=== PATIENT | male | born 1940 | race Caucasian/White ===

== ENCOUNTER → 2016-08-21 | Outpatient (CLI) | payer MEDICARE, BC ==
[~2016-08-21] MED LIST: ADVAIR; ADVAIR 250/501 EA INH; ALLOPURINOL300 MG PO; AMOXIL500 MG PO; ASPIRIN81 M1 PO; AUGMENTIN 500 M1 TAB PO; AUGMENTIN 875 M1 TA1 PO; AUGMENTIN 875875 MG PO; BAYER ASPIRIN325 MG PO; CRESTOR40 MG PO; Clopidogrel75 MG PO; FISH OIL 10001000 MG PO; FOLIC ACID; FOLIC ACID800 MCG PO; HYCODAN 1.5 MG480 ML; ISOSORBIDE DINIT5 MG PO; ISOSORBIDE MONO60 MG PO; ISOSORBIDE30 MG PO; LOPRESSOR25 MG PO; METOPROLOL SR50 MG PO; METOPROLOL100 MG PO; MULTIPLE VITAMI1 CAP PO; MULTIVITAMIN; PANTOPRAZOLE40 M1 PO; PANTOPRAZOLE40 MG PO; PLAVIX75 MG PO; TUSSIN100 MG/5 M PO; Zofran4 MG PO
== END | disposition home or self-care (01) ==
LOC: US 12:43
DX: I25.10 Atherosclerotic heart disease of native coronary artery without angina pectoris (principal); I10 Essential (primary) hypertension; I63.132 Cerebral infarction due to embolism of left carotid artery; I73.9 Peripheral vascular disease, unspecified; Z98.890 Other specified postprocedural states

== ENCOUNTER 2017-07-04 03:28 | Inpatient (IN) | payer MEDICARE, BC ==
[~2017-07-04] VITALS: Ht 175.2 cm; Wt 73.3 kg
[2017-07-04] VITALS (11 sets, daily range): BP systolic 120–211; BP diastolic 69–96
[2017-07-04 03:51] LABS: BASO # 0.1 10*3/uL (0.0-0.1); BASO % 1.3 % (0.0-1.0); EOS # 0.4 10*3/uL (0.0-0.4); EOS % 4.8 % (1.0-4.0); HEMATOCRIT 40.7 % (42.0-52.0); HEMOGLOBIN 12.5 g/dl (14.0-18.0); LYMPH # 2.7 10*3/uL (1.3-4.4); LYMPH % 31.3 % (27.0-41.0); MEAN CELL VOLUME 84.1 fl (80.0-94.0); MEAN CORPUSCULAR HGB 25.8 pg (27.0-31.0); MEAN CORPUSCULAR HGB CONC 30.7 g/dl (33.0-37.0); MEAN PLATELET VOLUME 10.2 fl (9.6-12.3); MONO # 0.8 10*3/uL (0.1-1.0); MONO % 9.7 % (3.0-9.0); NEUT # 4.5 10*3/uL (2.3-7.9); NEUT % 52.1 % (47.0-73.0); PLATELET COUNT AUTOMATED 227 10*3/uL (130-400); RED BLOOD COUNT 4.84 10*6/uL (4.50-5.90); RED CELL DISTRI WIDTH 15.1 % (0-14.5); WHITE BLOOD COUNT 8.6 10*3/uL (4.8-10.8)
[2017-07-04 04:01] LABS: ACT PARTIAL THROMBO TIME 24.7 SECONDS (20.8-31.5)
[2017-07-04 04:10] LABS: ALBUMIN 3.5 gm/dl (3.1-4.5); ALKALINE PHOSPHATASE 71 U/L (45-117); BUN 14 mg/dl (7-24); CHLORIDE 103 mmol/L (98-107); CREATININE 1.13 mg/dL (0.70-1.30); POTASSIUM 4.2 mmol/L (3.5-5.1); SGOT/AST 21 IU/L (3-35); SGPT/ALT 18 U/L (12-78); SODIUM 138 mmol/L (136-145); TOTAL PROTEIN 7.9 gm/dL (6.4-8.2)
[2017-07-04 04:12] LABS: TROPONIN I 0.292 ng/ml (<0.045)
--- NOTE | 2017-07-04 06:03 | NUR ---
CALLED TO GET REPORT FROM FRITZ AT 0600 REPORT RECIEVED AT THIS TIME.
--- NOTE | 2017-07-04 06:10 | NUR ---
A 77, admitted to ICCU, under the services of RAFI Gomez DO with a diagnosis of CHEST PAIN. Chief complaint is CHEST PAIN. Patient arrived via ambulatory from ER. Monitor applied. Initial assessment completed. Vital signs taken and recorded. RAFI GOMEZ DO notified of admission to the unit. Orders received. See assessment for past medical history, medications and allergies. Patient and/or family oriented to unit. [facility] ICCU visitation policy reviewed. Clothing/patient valuable form completed. YOVANA BEGUM
[2017-07-04 07:43] LABS: PHOSPHOROUS 2.4 mg/dL (2.5-4.9)
[2017-07-04 07:46] LABS: VITAMIN D, 25-HYDROXY 16.9 ng/mL (30-100)
[2017-07-04 07:48] LABS: THYROID STIM HORMONE (HS) 1.85 uIU/ml (0.358-4.75)
--- NOTE | 2017-07-04 09:00 | NUR ---
Awake and alert. and dtr called in to check on pt. Dr. Pak in to evaulate. Dr. Escobedo was paged through ans. service for notification of consult. Heparin gtt up to infuse.
[2017-07-04 09:24] LABS: BASO # 0.1 10*3/uL (0.0-0.1); BASO % 0.7 % (0.0-1.0); EOS # 0.3 10*3/uL (0.0-0.4); EOS % 3.7 % (1.0-4.0); HEMATOCRIT 39.7 % (42.0-52.0); HEMOGLOBIN 12.2 g/dl (14.0-18.0); LYMPH % 23.8 % (27.0-41.0); MEAN CELL VOLUME 83.9 fl (80.0-94.0); MEAN CORPUSCULAR HGB 25.8 pg (27.0-31.0); MEAN CORPUSCULAR HGB CONC 30.7 g/dl (33.0-37.0); MEAN PLATELET VOLUME 10.1 fl (9.6-12.3); MONO # 0.8 10*3/uL (0.1-1.0); MONO % 9.2 % (3.0-9.0); NEUT # 5.1 10*3/uL (2.3-7.9); PLATELET COUNT AUTOMATED 204 10*3/uL (130-400); RED BLOOD COUNT 4.73 10*6/uL (4.50-5.90); WHITE BLOOD COUNT 8.2 10*3/uL (4.8-10.8)
[2017-07-04 09:44] LABS: BUN 13 mg/dl (7-24); CHLORIDE 106 mmol/L (98-107); CREATININE 1.03 mg/dL (0.70-1.30); POTASSIUM 4.4 mmol/L (3.5-5.1); SODIUM 137 mmol/L (136-145)
--- NOTE | 2017-07-04 12:34 | NUR ---
Family in request lock box contents. recieved from retail warehouse supervisor.
--- NOTE | 2017-07-04 18:05 | NUR ---
Dr. galvan in discussed transfer to [facility] for heart cath in [facility] alerted and stated would berry picker machine operator at 0615.
[2017-07-05] VITALS: BP 140/73
[2017-07-05 04:00] VITALS: BP 143/74
--- NOTE | 2017-07-05 06:15 | NUR ---
FISHTAIL HERE TO TAKE PATIENT TO [facility] MAIN. PATIENT GOING WITH HEPARIN DRIP.
--- NOTE | 2017-07-05 06:28 | NUR ---
PATIENT REPORT GIVEN TO SHERI IN [facility] AT [facility]. NURSE ASKED IF PATIENT COULD PLEASE BE GIVEN LOPRESSOR ASA AND PLAVIX BEFORE HE LEFT. PATIENT WAS GIVEN HIS PILLS. PATIENT THEN LEFT BY [facility] TO BE TAKEN TO [facility] MAIN PATIENT LEFT IN STABLE CONDITION HEPARIN DRIP STILL INFUSING. PATIENT PACKET SENT WITH PATIENT ON AMBULANCE.
== END 2017-07-05 06:36 | disposition short-term general hospital (02) | DRG 281 ==
LOC: ED 03:28 → EDHOLD 05:46 → ICCU 05:46
PROVIDERS: Emergency Medicine Emergency Medical Services; Internal Medicine; ADMIT Internal Medicine
DX: I21.4 Non-ST elevation (NSTEMI) myocardial infarction (principal); I16.1 Hypertensive emergency; D64.9 Anemia, unspecified; E83.41 Hypermagnesemia; Z95.1 Presence of aortocoronary bypass graft; Z66 Do not resuscitate; J43.9 Emphysema, unspecified; I25.10 Atherosclerotic heart disease of native coronary artery without angina pectoris; I10 Essential (primary) hypertension; M1A.9XX0 Chronic gout, unspecified, without tophus (tophi); D72.821 Monocytosis (symptomatic); K21.9 Gastro-esophageal reflux disease without esophagitis; R73.9 Hyperglycemia, unspecified; Z51.5 Encounter for palliative care; Z88.1 Allergy status to other antibiotic agents; Z88.8 Allergy status to other drugs, medicaments and biological substances; Z86.73 Personal history of transient ischemic attack (TIA), and cerebral infarction without residual deficits; Z82.49 Family history of ischemic heart disease and other diseases of the circulatory system; Z79.82 Long term (current) use of aspirin; Z79.899 Other long term (current) drug therapy; E78.00 Pure hypercholesterolemia, unspecified

== ENCOUNTER 2017-07-17 11:58 | Emergency (ER) | payer MEDICARE, BC ==
[~2017-07-17] VITALS: Ht 170.1 cm; Wt 66.7 kg
[2017-07-17 12:56] LABS: HEMATOCRIT 32.9 % (42.0-52.0); MEAN CORPUSCULAR HGB 26.5 pg (27.0-31.0); MEAN CORPUSCULAR HGB CONC 30.4 g/dl (33.0-37.0); MEAN PLATELET VOLUME 9.9 fl (9.6-12.3); PLATELET COUNT AUTOMATED 423 10*3/uL (130-400); RED BLOOD COUNT 3.78 10*6/uL (4.50-5.90); RED CELL DISTRI WIDTH 18.8 % (0-14.5); WHITE BLOOD COUNT 16.1 10*3/uL (4.8-10.8)
[2017-07-17 13:01] LABS: BILIRUBIN NEGATIVE (NEGATIVE); BLOOD 3+ (NEGATIVE); CLARITY SL CLOUDY (CLEAR); COLOR YELLOW (YELLOW); GLUCOSE TRACE (NEGATIVE); KETONE NEGATIVE (NEGATIVE); LEUKO ESTERASE NEGATIVE (NEGATIVE); NITRITE NEGATIVE (NEGATIVE)
[2017-07-17 13:11] LABS: ALBUMIN 2.7 gm/dl (3.1-4.5); ALKALINE PHOSPHATASE 80 U/L (45-117); BUN 11 mg/dl (7-24); CHLORIDE 102 mmol/L (98-107); CREATININE 0.98 mg/dL (0.70-1.30); POTASSIUM 3.9 mmol/L (3.5-5.1); SGOT/AST 40 IU/L (3-35); SGPT/ALT 45 U/L (12-78); SODIUM 135 mmol/L (136-145); TOTAL PROTEIN 6.8 gm/dL (6.4-8.2)
[2017-07-17 13:11] LABS: BACTERIA TRACE; RBC 31-40 rbc/hpf (0-2); WBC 0-2 wbc/hpf (0-5)
[2017-07-17 13:14] LABS: PLATELET SUFFICIENCY HIGH (NORMAL); POLYCHROMASIA SLIGHT; SCHISTOCYTES FEW; TOTAL CELLS COUNTED 100 #CELLS
[2017-07-17 15:34] VITALS: BP 120/66
== END 2017-07-17 16:14 | disposition home or self-care (01) ==
LOC: ED 11:58
PROVIDERS: Emergency Medicine
DX: M79.662 Pain in left lower leg (principal); E78.5 Hyperlipidemia, unspecified; K21.9 Gastro-esophageal reflux disease without esophagitis; M10.9 Gout, unspecified; J44.9 Chronic obstructive pulmonary disease, unspecified; I10 Essential (primary) hypertension; I25.10 Atherosclerotic heart disease of native coronary artery without angina pectoris; Z88.1 Allergy status to other antibiotic agents; Z88.8 Allergy status to other drugs, medicaments and biological substances

== ENCOUNTER 2018-09-12 22:30 | Inpatient (IN) | payer MEDICARE, BC ==
[~2018-09-12] VITALS: Ht 170.1 cm; Wt 67.3 kg
--- NOTE | ~2018-09-12 | CON ---
[place], [place] REPORT OF CONSULTATION NAME: ZEUS ROSENBAUM [facility] #: [id number] UNIT #: [id number] ROOM: 531 DOCTOR: ANTONIO PINO MD BIRTHDATE: [birth year] DOS: 09/13/2018 GASTROENDOSCOPIC CONSULTATION REPORT HISTORY OF PRESENT ILLNESS: The patient has presented with chief complaint of nausea, epigastric distress, vomiting, and weight loss. He has had a panel of blood work done through the Emergency Room. Lactic acid was 2.0. CBC with a white blood cells 8, H and H of 13 and 42, platelet count was 190. INR 1.0. Complete metabolic panel, electrolytes within normal limits. SGOT and SGPT of 680 and 270+, respectively with alkaline phosphatase of 228. Lipase of 96. C-reactive protein 28. Bilirubin is within normal limits. Urinalysis, bacteria 4+. Chest x-ray consistent with chronic lung changes. CT scan of the abdomen and pelvis has been done. Cholelithiasis is suspected, extensive diverticulosis without diverticulitis visualization of the distal thoracic esophagus intraluminal fluid as well as esophageal mucosal thickening, findings can be consistent with esophagitis and otherwise possibility of carcinoma. Ultrasound of the abdomen, cholelithiasis. PAST MEDICAL HISTORY: Chronic renal insufficiency, COPD, cerebrovascular accident, gastroesophageal reflux, non-STEMI, Alzheimer. PAST SURGICAL HISTORY: Colonoscopy, laryngoscopy, tonsillectomy, coronary artery bypass x 5, carotid endarterectomy, hydrocelectomy. SOCIAL HISTORY: Passive smoker. Nonalcohol consumer. FAMILY HISTORY: Noncontributory. ALLERGIES: CECLOR, ERYTHROMYCIN, INDOMETHACIN, AVELOX. MEDICATION AT HOME: Including aspirin noticed, pantoprazole noticed. REVIEW OF SYSTEMS: HEENT: Denies double vision or blurred vision. RESPIRATORY: Denies shortness of breath. CARDIOVASCULAR: Denies acute chest pain. DIGESTIVE SYSTEM: Some dysphagia periodically. PHYSICAL EXAMINATION: VITAL SIGNS: Appear to be stable. HEENT: Within normal limits. Eyes, pupils round, reactive. No scleral icterus. Mouth and buccal mucosa benign. NECK: Supple, no thyromegaly. CHEST: Symmetric anatomy. No wheezes. HEART: Normal sinus rhythm. No gallop, no murmur. ABDOMEN: Soft. No hepato-organomegaly. Bowel sounds present. EXTREMITIES: Dry. NEUROLOGIC: Fully alert, oriented to time, place, person. Sensory, motor intact. Cranial nerves 2-12 intact. [place], [place] REPORT OF CONSULTATION [facility]: [id number] UNIT #: [id number] ROOM: 531 DOCTOR: ALVAREZ CHIN,ANTONIO BIRTHDATE: [birth year] IMPRESSION: Possible urosepsis, possible cholecystitis, but the reports are not convincing, CT scan of the abdomen and pelvis, diffuse atherosclerosis, small stone in the gallbladder neck, no ductal dilation, some mucosal thickening of the distal esophagus. An ultrasound of the gallbladder and liver demonstrates normal echogenicity. No hepatic mass or cyst or infiltrate or ductal dilation, cholelithiasis has been noticed. Abnormal liver function test without right upper quadrant pain, non-associated with obstruction. The patient has been on Crestor 40 mg daily, possibility of hepatic steatosis secondary to above. PLAN AND DISCUSSION: We are going to discontinue Crestor. We are going to repeat LFTs on Sunday. I am going to allow him to soft diet and as far as his esophagus is concerned possibility of endoscopy in future to ensure there is no occult early malignancy. OTHER ADJUNCTIVE DIAGNOSES: As outlined above in past medical and surgical history. ANTONIO PINO MD CM:CONSTR:REPORT OF CONSULTATION 1902 09/14/18 0537 interface
--- NOTE | ~2018-09-12 | O ---
[place], [place] OPERATIVE NOTE [id number] #: [id number] ROOM: 531 DOCTOR: ALVAREZ CHIN,ANTONIO BIRTHDATE: [birth year] DOS: 09/14/2018 GASTROENDOSCOPIC REPORT INDICATIONS: This is an 78-year-old patient who presented with chief complaint of dysphagia periodically, thickened distal esophagus on CT scan and concern about distal esophageal pathology, i.e., carcinoma. PROCEDURE: Today's procedure part of investigation is panendoscopy plus biopsy. PREMEDICATION: Propofol. SCOPE: Olympus forward-viewing gastroscope Q10 video. REPORT: After putting the patient in left lateral position and application of lubricant to the scope, the scope was introduced. Thereafter, under direct visualization, passed through the length of esophagus without difficulty. Distal esophagitis and tortuous esophagus and distal anatomy was noticed. There is no evidence of carcinoma. The very tiny hiatal hernia of 1 cm ulcer was noticed. Gastric pouch was entered. Gastritis seen. Antral biopsy was obtained. Duodenal bulb, second and third part within normal limits. The patient extubated, tolerated the procedure well. IMPRESSION: Distal esophagitis, tortuous distal esophagus, small hiatal hernia, and gastritis. PLAN AND DISCUSSION: I believe this patient has to have a softer diet to accommodate his nutritional need and as far as his abnormal liver function tests is concerned, I have removed the Crestor from his diet and I will repeat LFTs, perhaps Sunday and truly about a week after Crestor has been stopped will be most beneficial followup. Plan and discussion otherwise as indicated above. Protonix on board. ANTONIO PINO MD CM:OPRECORD:OPERATIVE NOTE 1508 1524 ANTONIO PINO MD 09/14/18 1524 interface
--- NOTE | ~2018-09-12 | EKG ---
[place], [place] ELECTROCARDIOGRAM REPORT NAME: ZEUS ROSENBAUM UNIT #: [id number] ROOM: 531 DOCTOR: EPIPHANY DRAFT REPORT BIRTHDATE: [birth year] [facility] Test Date: 2018-09-12 Test Time: 22:56:01 Pat Name: ZEUS ROSENBAUM Department: Room: 531 Gender: M Desktop Publisher: Willis Mercado : 1940 Requested By: PAULINA THOMAS Order Number: [id number] Reading MD: Willis Luna MD Measurements Intervals [place] Rate: 88 P: 23 CA: 142 QRS: -34 QRSD: 95 T: 79 QT: 349 QTc: 423 Interpretive Statements Sinus rhythm Left axis deviation Borderline low voltage, extremity leads Minimal ST depression, lateral leads Artifact in lead(s) I,III,aVR,aVL,aVF Electronically Signed On 09-13-2018 7:21:34 PST by Willis Luna MD CM:EKGRPT:ELECTROCARDIOGRAM REPORT [id number] PAULINA THOMAS MD EPIPHANY DRAFT REPORT PAULINA THOMAS MD
[2018-09-12 22:34] VITALS: BP 133/70
[2018-09-12 23:10] VITALS: BP 103/56
[2018-09-12 23:14] LABS: BASO # 0.1 10*3/uL (0.0-0.1); BASO % 0.6 % (0.0-1.0); EOS # 0.1 10*3/uL (0.0-0.4); EOS % 0.8 % (1.0-4.0); HEMATOCRIT 42.1 % (42.0-52.0); HEMOGLOBIN 13.7 g/dl (14.0-18.0); LYMPH # 0.6 10*3/uL (1.3-4.4); LYMPH % 7.3 % (27.0-41.0); MEAN CELL VOLUME 91.5 fl (80.0-94.0); MEAN CORPUSCULAR HGB 29.8 pg (27.0-31.0); MEAN CORPUSCULAR HGB CONC 32.5 g/dl (33.0-37.0); MEAN PLATELET VOLUME 10.4 fl (9.6-12.3); MONO # 0.6 10*3/uL (0.1-1.0); MONO % 7.2 % (3.0-9.0); NEUT # 7.3 10*3/uL (2.3-7.9); NEUT % 83.5 % (47.0-73.0); PLATELET COUNT AUTOMATED 190 10*3/uL (130-400); RED CELL DISTRI WIDTH 13.5 % (0-14.5); WHITE BLOOD COUNT 8.7 10*3/uL (4.8-10.8)
[2018-09-12 23:15] LABS: ACT PARTIAL THROMBO TIME 23.7 SECONDS (20.8-31.5)
[2018-09-12 23:18] LABS: ALKALINE PHOSPHATASE 228 U/L (45-117); BUN 18 mg/dl (7-24); CHLORIDE 106 mmol/L (98-107); CREATININE 1.19 mg/dL (0.70-1.30); LIPASE 96 U/L (73-393); POTASSIUM 4.1 mmol/L (3.5-5.1); SGOT/AST 684 IU/L (3-35); SGPT/ALT 276 U/L (12-78); SODIUM 137 mmol/L (136-145); TOTAL PROTEIN 7.3 gm/dL (6.4-8.2)
[2018-09-12 23:22] LABS: TROPONIN I < 0.015 ng/ml (<0.045)
[2018-09-12 23:26] LABS: BILIRUBIN 1+ (NEGATIVE); BLOOD TRACE-INTACT (NEGATIVE); CLARITY SL CLOUDY (CLEAR); COLOR YELLOW (YELLOW); GLUCOSE NEGATIVE (NEGATIVE); KETONE TRACE (NEGATIVE); LEUKO ESTERASE 1+ (NEGATIVE); NITRITE POSITIVE (NEGATIVE); PH 6.5 (5.0-9.0)
[2018-09-12 23:40] VITALS: BP 107/59
[2018-09-12 23:44] LABS: BACTERIA 4+
[2018-09-12 23:45] LABS: WBC 16-20 wbc/hpf (0-5)
[2018-09-13] VITALS (10 sets, daily range): BP systolic 92–162; BP diastolic 46–72
--- NOTE | 2018-09-13 03:45 | NUR ---
Time: A 78 year old M admitted to 5E under services of URBAN CURRY DO. Pt. arrived via bed from ER. Chief complaint: ABD PAIN. ROWAN BALDERRAMA
[2018-09-13 06:13] LABS: BASO # 0.1 10*3/uL (0.0-0.1); BASO % 0.9 % (0.0-1.0); EOS # 0.2 10*3/uL (0.0-0.4); EOS % 2.2 % (1.0-4.0); HEMATOCRIT 39.2 % (42.0-52.0); HEMOGLOBIN 12.1 g/dl (14.0-18.0); LYMPH # 1.3 10*3/uL (1.3-4.4); LYMPH % 17.7 % (27.0-41.0); MEAN CELL VOLUME 93.3 fl (80.0-94.0); MEAN CORPUSCULAR HGB 28.8 pg (27.0-31.0); MEAN CORPUSCULAR HGB CONC 30.9 g/dl (33.0-37.0); MEAN PLATELET VOLUME 10.6 fl (9.6-12.3); MONO # 0.8 10*3/uL (0.1-1.0); MONO % 10.1 % (3.0-9.0); NEUT % 67.2 % (47.0-73.0); PLATELET COUNT AUTOMATED 165 10*3/uL (130-400); RED CELL DISTRI WIDTH 13.5 % (0-14.5); WHITE BLOOD COUNT 7.4 10*3/uL (4.8-10.8)
--- NOTE | 2018-09-13 06:25 | NUR ---
DR. PINO MADE AWARE OF COSULT. OORDERS RIGHT NOW ARE TO KEEP PT NPO AND TELL DR. PINO THE RESULTS USABD AND HEPATITIS PANEL. ATTAIN RECORDS FROM [place].
[2018-09-13 06:37] LABS: ACT PARTIAL THROMBO TIME 25.9 SECONDS (20.8-31.5); INTERNATIONAL NORM RATIO 1.1 (2.0-3.5)
[2018-09-13 06:38] LABS: ALBUMIN 2.5 gm/dl (3.1-4.5); ALKALINE PHOSPHATASE 181 U/L (45-117); BUN 16 mg/dl (7-24); CHLORIDE 107 mmol/L (98-107); CHOLESTEROL 103 mg/dL (<200); CREATININE 0.98 mg/dL (0.70-1.30); FREE T4 1.06 ng/dl (0.76-1.46); HDL CHOLESTEROL 31 mg/dl (40-60); LDL CHOLESTEROL 51 mg/dL (9-159); PHOSPHOROUS 2.8 mg/dL (2.5-4.9); POTASSIUM 3.7 mmol/L (3.5-5.1); SGOT/AST 344 IU/L (3-35); SGPT/ALT 207 U/L (12-78); SODIUM 139 mmol/L (136-145); TOTAL PROTEIN 6.4 gm/dL (6.4-8.2); TRIGLYCERIDES 106 mg/dl (<150); VLDL CHOLESTEROL 21 mg/dL (6-40)
[2018-09-13 06:43] LABS: THYROID STIM HORMONE (HS) 0.722 uIU/ml (0.358-4.75)
[2018-09-13 07:17] LABS: VITAMIN D, 25-HYDROXY 8.2 ng/mL (30-100)
--- NOTE | 2018-09-13 19:05 | NUR ---
Dr. Heard in and saw pt. States to DC crestor, pt is not currently receiving crestor as inpt but it is a home medication. DC from home medication list per order from Dr. Heard.
[2018-09-14] VITALS (8 sets, daily range): BP systolic 136–195; BP diastolic 62–85
[2018-09-14 06:58] LABS: BASO # 0.1 10*3/uL (0.0-0.1); BASO % 0.9 % (0.0-1.0); EOS # 0.4 10*3/uL (0.0-0.4); EOS % 6.7 % (1.0-4.0); HEMATOCRIT 38.4 % (42.0-52.0); HEMOGLOBIN 12.2 g/dl (14.0-18.0); LYMPH # 1.2 10*3/uL (1.3-4.4); LYMPH % 18.8 % (27.0-41.0); MEAN CELL VOLUME 91.4 fl (80.0-94.0); MEAN CORPUSCULAR HGB CONC 31.8 g/dl (33.0-37.0); MEAN PLATELET VOLUME 10.3 fl (9.6-12.3); MONO # 0.7 10*3/uL (0.1-1.0); MONO % 10.2 % (3.0-9.0); NEUT % 62.1 % (47.0-73.0); PLATELET COUNT AUTOMATED 161 10*3/uL (130-400); RED CELL DISTRI WIDTH 13.5 % (0-14.5); WHITE BLOOD COUNT 6.4 10*3/uL (4.8-10.8)
[2018-09-14 07:06] LABS: HEPATITIS B SURFACE AG Negative (Negative); HEPATITIS C VIRUS ANTIBODY <0.1 s/co (0.0-0.9)
[2018-09-14 07:15] LABS: CHLORIDE 110 mmol/L (98-107); POTASSIUM 3.9 mmol/L (3.5-5.1); SODIUM 140 mmol/L (136-145)
[2018-09-14 07:25] LABS: ALBUMIN 2.5 gm/dl (3.1-4.5); ALKALINE PHOSPHATASE 160 U/L (45-117); BUN 8 mg/dl (7-24); CREATININE 0.89 mg/dL (0.70-1.30); LIPASE 65 U/L (73-393); PHOSPHOROUS 2.4 mg/dL (2.5-4.9); SGOT/AST 103 IU/L (3-35); SGPT/ALT 119 U/L (12-78); TOTAL PROTEIN 6.2 gm/dL (6.4-8.2)
--- NOTE | 2018-09-14 21:01 | NUR ---
PATIENTS BP WAS HIGH AT 190/80. DR. SERRANO WAS NOTIFIED AND FLUIDS WERE STOPPED AND HOME MEDICATIONS WERE ORDERED WITH A NOW DOSE OF PATIENTS IMDUR. WILL RECHECK BP AT 2200
--- NOTE | 2018-09-14 22:00 | NUR ---
PATIENT BP RECHECKED. PATIENTS BP MUCH BETTER AT THIS TIME. 144/78. NO CONCERNS NOTED
[2018-09-15] VITALS: BP 154/53
[2018-09-15 06:23] LABS: BASO # 0.1 10*3/uL (0.0-0.1); BASO % 0.9 % (0.0-1.0); EOS # 0.5 10*3/uL (0.0-0.4); EOS % 6.6 % (1.0-4.0); HEMATOCRIT 40.5 % (42.0-52.0); HEMOGLOBIN 12.7 g/dl (14.0-18.0); LYMPH # 1.7 10*3/uL (1.3-4.4); LYMPH % 21.4 % (27.0-41.0); MEAN CELL VOLUME 92.7 fl (80.0-94.0); MEAN CORPUSCULAR HGB 29.1 pg (27.0-31.0); MEAN CORPUSCULAR HGB CONC 31.4 g/dl (33.0-37.0); MEAN PLATELET VOLUME 10.3 fl (9.6-12.3); MONO # 0.7 10*3/uL (0.1-1.0); MONO % 8.8 % (3.0-9.0); NEUT # 4.9 10*3/uL (2.3-7.9); NEUT % 61.1 % (47.0-73.0); PLATELET COUNT AUTOMATED 194 10*3/uL (130-400); RED BLOOD COUNT 4.37 10*6/uL (4.50-5.90); RED CELL DISTRI WIDTH 13.6 % (0-14.5); WHITE BLOOD COUNT 8.1 10*3/uL (4.8-10.8)
[2018-09-15 06:32] LABS: ALBUMIN 2.7 gm/dl (3.1-4.5); ALKALINE PHOSPHATASE 194 U/L (45-117); BUN 7 mg/dl (7-24); CHLORIDE 109 mmol/L (98-107); CREATININE 0.99 mg/dL (0.70-1.30); LIPASE 66 U/L (73-393); POTASSIUM 3.9 mmol/L (3.5-5.1); SGOT/AST 58 IU/L (3-35); SGPT/ALT 90 U/L (12-78); SODIUM 141 mmol/L (136-145); TOTAL PROTEIN 6.8 gm/dL (6.4-8.2)
[2018-09-15 08:00] VITALS: BP 144/74
--- NOTE | 2018-09-15 08:58 | NUR ---
PT SITTING UP IN BED, EATING BREAKFAST. NO DISTRESS NOTED NO VOICED C/O. WILL MONITOR
[2018-09-15 12:00] VITALS: BP 113/77
[2018-09-15 16:00] VITALS: BP 103/51
[2018-09-15] MEDS ORDERED: CRESTOR40 M1 PO (17:45)
[2018-09-15] MEDS ORDERED: LOPRESSOR50 M1 PO (17:46)
[2018-09-15] MEDS ORDERED: CLARITIN10 MG PO (17:46)
--- NOTE | 2018-09-15 17:46 | NUR ---
MED REC UPDATED PER PT
--- NOTE | 2018-09-15 18:16 | NUR ---
DR LANDRY WILBURN NOTIFIED OF MED REC UPDATED
[2018-09-15 20:00] VITALS: BP 152/55
[2018-09-16] VITALS: BP 135/61
[2018-09-16 06:16] LABS: BASO # 0.1 10*3/uL (0.0-0.1); BASO % 1.5 % (0.0-1.0); EOS # 0.6 10*3/uL (0.0-0.4); EOS % 8.6 % (1.0-4.0); HEMATOCRIT 37.6 % (42.0-52.0); HEMOGLOBIN 12.3 g/dl (14.0-18.0); LYMPH # 1.5 10*3/uL (1.3-4.4); LYMPH % 23.3 % (27.0-41.0); MEAN CELL VOLUME 90.8 fl (80.0-94.0); MEAN CORPUSCULAR HGB 29.7 pg (27.0-31.0); MEAN CORPUSCULAR HGB CONC 32.7 g/dl (33.0-37.0); MEAN PLATELET VOLUME 10.2 fl (9.6-12.3); MONO # 0.7 10*3/uL (0.1-1.0); MONO % 10.7 % (3.0-9.0); NEUT # 3.5 10*3/uL (2.3-7.9); NEUT % 54.2 % (47.0-73.0); PLATELET COUNT AUTOMATED 194 10*3/uL (130-400); RED BLOOD COUNT 4.14 10*6/uL (4.50-5.90); RED CELL DISTRI WIDTH 13.7 % (0-14.5); WHITE BLOOD COUNT 6.5 10*3/uL (4.8-10.8)
[2018-09-16 06:37] LABS: ALBUMIN 2.4 gm/dl (3.1-4.5); ALKALINE PHOSPHATASE 149 U/L (45-117); BILIRUBIN, DIRECT 0.2 mg/dL (0.0-0.2); BUN 7 mg/dl (7-24); CHLORIDE 107 mmol/L (98-107); CREATININE 1.04 mg/dL (0.70-1.30); POTASSIUM 3.7 mmol/L (3.5-5.1); SGOT/AST 31 IU/L (3-35); SGPT/ALT 64 U/L (12-78); SODIUM 140 mmol/L (136-145); TOTAL PROTEIN 6.3 gm/dL (6.4-8.2)
--- NOTE | 2018-09-16 06:46 | NUR ---
NOTIFIED OF LFTs THIS MORNING. NO NEW ORDERS RECEIVED.
[2018-09-16 08:00] VITALS: BP 122/78
[2018-09-16] MEDS ORDERED: Vitamin D PO (10:26)
[2018-09-16] MEDS ORDERED: MACROBID100 M1 PO (10:26)
--- NOTE | 2018-09-16 11:16 | NUR ---
Discharge instructions reviewed with patient. Patient receptive and verbalizes understanding. Follow-up care arranged. Written instructions given to patient. MARIE RAMIREZ
--- NOTE | 2018-09-16 11:47 | NUR ---
PATIENT AWAITING RIDE FROM FAMILY FOR DISCHARGE.
--- NOTE | 2018-09-16 12:08 | NUR ---
PATIENT DISCHARGED TO FRONT LOBBY BY WHEELCHAIR, FOR TRANSPORT HOME BY PRIVATE VEHICLE WITH FAMILY MEMBER.
--- NOTE | 2018-09-16 12:46 | NUR ---
Psychiatric Assistant in to talk to patient. Patient states lives at HOME with . There are FEW steps in the home. Physician: RAMIRO [facility]: NO Patient's level of ADLs: INDEPENDENT Patient has working utilities: NO DME: NONE Follow-up physician's appointment after d/c: WILL BE MADE BY HOSPTIALIST NURSE DIRECTOR ON DISCHARGE Does patient want to access PORTAL?: NO Discharge plan PT LIVES AT HOME WITH AND INDEPENDENT IN CARE. NO DISCHARGE PLANS NEEDED PER PT. HAS A RIDE HOME ON DISCHARGE. PT BEING DISCHARGED TODAY. WILL CONTINUE TO FOLLOW.. WELLINGTON DALTON
== END 2018-09-16 12:50 | disposition home or self-care (01) | DRG 445 ==
LOC: ED 22:30 → EDHOLD 09-13 02:09 → 5E 09-13 02:09
PROVIDERS: Emergency Medicine; Emergency Medicine Emergency Medical Services; Family Medicine; Internal Medicine Gastroenterology; ADMIT Internal Medicine
PROC: 0DB78ZX Excision of Stomach, Pylorus, Via Natural or Artificial Opening Endoscopic, Diagnostic (ICD-10-PCS; principal; 2018-09-14)
DX: K80.10 Calculus of gallbladder with chronic cholecystitis without obstruction (principal); E44.0 Moderate protein-calorie malnutrition; N39.0 Urinary tract infection, site not specified; N17.9 Acute kidney failure, unspecified; N18.3 Chronic kidney disease, stage 3 (moderate); D64.9 Anemia, unspecified; R73.9 Hyperglycemia, unspecified; E78.5 Hyperlipidemia, unspecified; I25.10 Atherosclerotic heart disease of native coronary artery without angina pectoris; K25.9 Gastric ulcer, unspecified as acute or chronic, without hemorrhage or perforation; B96.20 Unspecified Escherichia coli [E. coli] as the cause of diseases classified elsewhere; G30.9 Alzheimer's disease, unspecified; F02.80 Dementia in other diseases classified elsewhere, unspecified severity, without behavioral disturbance, psychotic disturbance, mood disturbance, and anxiety; K22.8 Other specified diseases of esophagus; K29.70 Gastritis, unspecified, without bleeding; M10.9 Gout, unspecified; Z66 Do not resuscitate; Z51.5 Encounter for palliative care; E86.0 Dehydration; I12.9 Hypertensive chronic kidney disease with stage 1 through stage 4 chronic kidney disease, or unspecified chronic kidney disease; J43.9 Emphysema, unspecified; K21.0 Gastro-esophageal reflux disease with esophagitis; K44.9 Diaphragmatic hernia without obstruction or gangrene; Z88.1 Allergy status to other antibiotic agents; Z86.73 Personal history of transient ischemic attack (TIA), and cerebral infarction without residual deficits; I25.2 Old myocardial infarction; Z95.1 Presence of aortocoronary bypass graft; Z87.891 Personal history of nicotine dependence; Z82.49 Family history of ischemic heart disease and other diseases of the circulatory system; Z82.3 Family history of stroke; Z79.82 Long term (current) use of aspirin; Z79.899 Other long term (current) drug therapy; Z68.23 Body mass index [BMI] 23.0-23.9, adult

== ENCOUNTER 2018-09-21 13:25 | Inpatient (IN) | payer MEDICARE, BC ==
[~2018-09-21] VITALS: Ht 170.1 cm; Wt 63.2 kg
--- NOTE | ~2018-09-21 | EKG ---
[place], [place] ELECTROCARDIOGRAM REPORT NAME: ZEUS ROSENBAUM UNIT #: [id number] ROOM: 507 DOCTOR: MIMI DRAFT REPORT BIRTHDATE: [birth year] [facility] Test Date: 2018-09-21 Test Time: 13:41:46 Pat Name: ZEUS ROSENBAUM Department: Room: 50 Gender: M Equal Opportunity Officer: Katarina Kenny : 1940 Requested By: ANNA GALVAN Order Number: [id number] Reading MD: Willis Luna MD Measurements Intervals [place] Rate: 74 P: 14 AR: 142 QRS: -32 QRSD: 100 T: 87 QT: 391 QTc: 434 Interpretive Statements Sinus rhythm Inferior infarct, old Compared to ECG 09/12/2018 22:56:01 Left-axis deviation no longer present ST (T wave) deviation no longer present Electronically Signed On 09-22-2018 15:18:41 PST by Willis Luna MD CM:EKGRPT:ELECTROCARDIOGRAM REPORT [id number] 1518 ANNA JEFFERSONANY DRAFT REPORT ANNA GALVAN MD
[~2018-09-21 13:25] MED LIST changes: +CLARITIN10 MG PO; +CRESTOR40 M1 PO; +LOPRESSOR50 M1 PO; +MACROBID100 M1 PO; +Vitamin D PO
[2018-09-21 13:26] VITALS: BP 152/73
[2018-09-21 13:53] LABS: BASO # 0.1 10*3/uL (0.0-0.1); BASO % 0.5 % (0.0-1.0); EOS # 0.2 10*3/uL (0.0-0.4); HEMATOCRIT 41.6 % (42.0-52.0); HEMOGLOBIN 13.4 g/dl (14.0-18.0); LYMPH % 6.9 % (27.0-41.0); MEAN CELL VOLUME 91.8 fl (80.0-94.0); MEAN CORPUSCULAR HGB 29.6 pg (27.0-31.0); MEAN CORPUSCULAR HGB CONC 32.2 g/dl (33.0-37.0); MEAN PLATELET VOLUME 9.9 fl (9.6-12.3); MONO # 0.7 10*3/uL (0.1-1.0); MONO % 4.3 % (3.0-9.0); NEUT # 13.1 10*3/uL (2.3-7.9); NEUT % 86.9 % (47.0-73.0); PLATELET COUNT AUTOMATED 269 10*3/uL (130-400); RED BLOOD COUNT 4.53 10*6/uL (4.50-5.90); RED CELL DISTRI WIDTH 13.3 % (0-14.5); WHITE BLOOD COUNT 15.1 10*3/uL (4.8-10.8)
[2018-09-21 14:06] LABS: ACT PARTIAL THROMBO TIME 23.9 SECONDS (20.8-31.5)
[2018-09-21 14:09] LABS: ALBUMIN 3.1 gm/dl (3.1-4.5); ALKALINE PHOSPHATASE 127 U/L (45-117); BUN 13 mg/dl (7-24); CHLORIDE 104 mmol/L (98-107); CREATININE 1.01 mg/dL (0.70-1.30); POTASSIUM 3.8 mmol/L (3.5-5.1); SGOT/AST 24 IU/L (3-35); SGPT/ALT 29 U/L (12-78); SODIUM 138 mmol/L (136-145); TOTAL PROTEIN 7.1 gm/dL (6.4-8.2)
[2018-09-21 14:10] LABS: BILIRUBIN 1+ (NEGATIVE); BLOOD TRACE-INTACT (NEGATIVE); CLARITY CLEAR (CLEAR); COLOR YELLOW (YELLOW); GLUCOSE NEGATIVE (NEGATIVE); KETONE TRACE (NEGATIVE); LEUKO ESTERASE NEGATIVE (NEGATIVE); NITRITE NEGATIVE (NEGATIVE); PH 5.5 (5.0-9.0); UROBILINOGEN 0.2 E.U./dl (0.2-1.0)
[2018-09-21 14:11] LABS: TROPONIN I < 0.015 ng/ml (<0.045)
[2018-09-21 14:18] LABS: BACTERIA TRACE
[2018-09-21 14:19] LABS: MUCOUS TRACE
[2018-09-21 15:35] VITALS: BP 90/52
--- NOTE | 2018-09-21 17:27 | NUR ---
PT MEDICATED WITH PRN XANAX AND NORCO FOR C/O BACK PAIN AND INCREASED ANXIETY. PT RATES PAIN 01/27. WILL REACCESS.
[2018-09-21 20:00] VITALS: BP 92/50
--- NOTE | 2018-09-21 20:00 | NUR ---
RESTING IN BED TALKING ON PHONE. PT. VOICES NO C/O AT THIS TIME. MEDICATIONS GIVEN EARLIER APPARENTLY EFFECTIVE. CALL LIGHT WITHIN REACH.
--- NOTE | 2018-09-21 23:36 | NUR ---
CALLED DR. MARTINEZ PERTAINING TO PT'S BLOOD PRESSURE. DR. MARTINEZ STATED TO CONTINUE TO MONITOR IT.
[2018-09-22] VITALS: BP 80/38
[2018-09-22 05:20] VITALS: BP 135/54
--- NOTE | 2018-09-22 05:30 | NUR ---
AROUSES EASILY TO TAKE PO MEDICATIONS. PT. VOICES NO C/O AT THIS TIME. CALL LIGHT WITHIN REACH.
[2018-09-22 07:11] LABS: BASO # 0.1 10*3/uL (0.0-0.1); BASO % 1.1 % (0.0-1.0); EOS # 0.3 10*3/uL (0.0-0.4); EOS % 4.5 % (1.0-4.0); HEMATOCRIT 39.9 % (42.0-52.0); HEMOGLOBIN 12.2 g/dl (14.0-18.0); LYMPH # 1.9 10*3/uL (1.3-4.4); LYMPH % 24.7 % (27.0-41.0); MEAN CORPUSCULAR HGB 28.4 pg (27.0-31.0); MEAN CORPUSCULAR HGB CONC 30.6 g/dl (33.0-37.0); MEAN PLATELET VOLUME 9.6 fl (9.6-12.3); MONO # 0.7 10*3/uL (0.1-1.0); MONO % 9.6 % (3.0-9.0); NEUT # 4.5 10*3/uL (2.3-7.9); NEUT % 59.3 % (47.0-73.0); PLATELET COUNT AUTOMATED 241 10*3/uL (130-400); RED BLOOD COUNT 4.29 10*6/uL (4.50-5.90); RED CELL DISTRI WIDTH 13.5 % (0-14.5); WHITE BLOOD COUNT 7.6 10*3/uL (4.8-10.8)
[2018-09-22 07:44] LABS: ALBUMIN 2.9 gm/dl (3.1-4.5); BUN 14 mg/dl (7-24); CHLORIDE 106 mmol/L (98-107); POTASSIUM 4.2 mmol/L (3.5-5.1); SODIUM 140 mmol/L (136-145)
[2018-09-22 07:46] LABS: ALKALINE PHOSPHATASE 110 U/L (45-117); CREATININE 1.07 mg/dL (0.70-1.30); PHOSPHOROUS 2.7 mg/dL (2.5-4.9); SGOT/AST 18 IU/L (3-35); SGPT/ALT 24 U/L (12-78); TOTAL PROTEIN 6.9 gm/dL (6.4-8.2)
[2018-09-22 08:00] VITALS: BP 152/54
--- NOTE | 2018-09-22 11:46 | NUR ---
Shift chart check completed.
[2018-09-22 12:00] VITALS: BP 100/56
[2018-09-22 16:00] VITALS: BP 106/53
--- NOTE | 2018-09-22 19:18 | NUR ---
24 HR CHART CHECK COMPLETE.
--- NOTE | 2018-09-22 19:30 | NUR ---
PT AWAKE AND RESTING IN BED. HE STATES HE IS HAVING SOME SHOULDER PAIN BUT THAT HE HAS FREQUENT ISSUES WITH PAIN IN BOTH SHOULDERS AND IT IS NOT UNUSUAL. WILL CONTINUE TO MONITOR.
[2018-09-22 20:00] VITALS: BP 111/53
--- NOTE | 2018-09-22 23:01 | NUR ---
ASSUMED CARE OF PT AT THIS TIME. PATIENT ASLEEP IN BED, EASILY AROUSABLE. PT DENIES ANY CHEST PAIN/SOB/GENERALIZED DISCOMFORT. WILL MONITOR. CALL LIGHT LEFT IN REACH.
[2018-09-23] VITALS: BP 105/56
--- NOTE | 2018-09-23 03:49 | NUR ---
PATIENT ASLEEP IN BED. RESPIRATIONS EASY. NO S/S OF DISTRESS NOTED. WILL MONITOR. CALL LIGHT LEFT IN REACH.
[2018-09-23 08:00] VITALS: BP 139/77
--- NOTE | 2018-09-23 08:57 | NUR ---
Patient not available for Occupational Therapy as he is eating breakfast. Kate Negrete OTR/L
--- NOTE | 2018-09-23 10:10 | NUR ---
Nutritional Support Services Note: Discussed with pt soft diet. Diet copy given to pt. All questions were answered. He has a good understanding of his diet. Encouraged follow up if needed. Gemini Crowley Rdn Ld
--- NOTE | 2018-09-23 10:30 | NUR ---
Occupational Therapy evaluation completed on 5 with full eval to follow. Precautions include IV UE.Patient is low complexity level 63586 via chart review, testing and evaluation. Recommend no further OT at this time. Patient is independent in functional mobility, self care and transfers without assistive device. Thank you for this referral. Kate Negrete OTR/l
--- NOTE | 2018-09-23 10:54 | NUR ---
PHYSICAL THERAPY PAtient evalauted on 5, full evaluation to follow. D/c PT after evaluation, patient (I) with mobility. Home with home health rn prn. PAtient is low complexity via chart review, tests and evaluation: [id number]. Thank you for this referral. Anne Clifton,PT
--- NOTE | 2018-09-23 11:26 | NUR ---
Manager Talent in to talk to patient. Patient states lives at HOME with AND SON. There are BASEMENT steps in the home. Physician: RAMIRO [facility]: [facility] Home health services: NONE Patient's level of ADLs: INDEPENDENT Patient has working utilities: YES DME: NONE Follow-up physician's appointment after d/c: WILL BE MADE BY HOSPITALIST NURSE DIRECTOR ON DISCHARGE Does patient want to access PORTAL?: NO Discharge plan PT STATES HE LIVES AT HOME WITH HIS AND SON AND IS INDEPENDENT IN CARE. DENIES ANY HOME NEEDS. CAN BE DISCHARED TO HOME WHEN MEDICALLY STABLE. STATES SON WILL TAKE HIM HOME. WILL CONTINUE TO FOLLOW.. WELLINGTON DALTON
[2018-09-23] MEDS ORDERED: ZANTAC 150150 MG PO (12:14)
[2018-09-23] MEDS ORDERED: FLOMAX0.4 MG PO (12:14)
--- NOTE | 2018-09-23 12:50 | NUR ---
PATIENT IV REMOVED AND DISCHARGE PAPERS SIGNED. WAITING ON TO PICK HIM UP.
--- NOTE | 2018-09-23 13:10 | NUR ---
Discharge instructions reviewed with patient/family. Patient receptive and verbalizes understanding. Follow-up care arranged. Written instructions given to patient/family. PATIENT DISCHARGED TO HOME VIA WHEELCHIAR WITH AND SON. CASSANDRA DALTON
--- NOTE | 2018-09-23 14:20 | NUR ---
SPEECH PATHOLOGY Bedside swallow evaluation completed as per orders. Patient reported that at times after swallowing, foods feel like they are sticking, then "come back up." Medical history is significant for CVA, GERD, [place], weakness. He reported that he recently underwent endoscopy and reported that his esophagus is twisted. He appeared aware of his difficulties and stated strategies that he uses to help foods go down. Patient receives a soft diet and thin liquid. He was assessed during lunch time meal with soft solids and thin liquids. He displayed no overt difficulty and was observed using safety strategies such as small bites/sips, alternating liquid and solid, chewing thoroughly and eating slowly. Recommend he remain on present diet with continued use of strategies. No follow up is warranted as he tolerates safest diet with implementation of safe swallow precautions. He was educated on results and desiree. of assessment and reflux precautions. He verbalized understanding of all information. Refer to report in [employer] for further info. Thank you for this referral. [facility] [employer]
== END 2018-09-23 13:10 | disposition home or self-care (01) | DRG 641 ==
LOC: ED 13:25 → 5E 15:12 → EDHOLD 15:12 → 5E 15:19
PROVIDERS: Emergency Medicine; Registered Nurse; ADMIT Internal Medicine
DX: E86.0 Dehydration (principal); E44.0 Moderate protein-calorie malnutrition; R13.10 Dysphagia, unspecified; R29.6 Repeated falls; R68.89 Other general symptoms and signs; D72.829 Elevated white blood cell count, unspecified; K21.9 Gastro-esophageal reflux disease without esophagitis; K44.9 Diaphragmatic hernia without obstruction or gangrene; I12.9 Hypertensive chronic kidney disease with stage 1 through stage 4 chronic kidney disease, or unspecified chronic kidney disease; N18.3 Chronic kidney disease, stage 3 (moderate); J44.9 Chronic obstructive pulmonary disease, unspecified; Z66 Do not resuscitate; Z51.5 Encounter for palliative care; M10.9 Gout, unspecified; D64.9 Anemia, unspecified; E78.5 Hyperlipidemia, unspecified; I25.10 Atherosclerotic heart disease of native coronary artery without angina pectoris; R73.9 Hyperglycemia, unspecified; Z88.1 Allergy status to other antibiotic agents; Z86.73 Personal history of transient ischemic attack (TIA), and cerebral infarction without residual deficits; I25.2 Old myocardial infarction; Z87.440 Personal history of urinary (tract) infections; Z95.1 Presence of aortocoronary bypass graft; Z87.891 Personal history of nicotine dependence; Z82.49 Family history of ischemic heart disease and other diseases of the circulatory system; Z82.3 Family history of stroke; Z79.82 Long term (current) use of aspirin; Z79.899 Other long term (current) drug therapy; Z68.21 Body mass index [BMI] 21.0-21.9, adult

== ENCOUNTER → 2019-06-25 | Outpatient (CLI) | payer MEDICARE, BC ==
[~2019-06-25] MED LIST changes: +FLOMAX0.4 MG PO; +ZANTAC 150150 MG PO
== END | disposition home or self-care (01) ==
LOC: RAD 11:24
DX: K46.9 Unspecified abdominal hernia without obstruction or gangrene (principal); K44.9 Diaphragmatic hernia without obstruction or gangrene; K21.9 Gastro-esophageal reflux disease without esophagitis

== ENCOUNTER → 2019-09-25 | Outpatient (CLI) | payer MEDICARE, BC ==
[2019-09-25 09:46] LABS: BASO # 0.1 10*3/uL (0.0-0.1); BASO % 1.1 % (0.0-1.0); EOS # 0.4 10*3/uL (0.0-0.4); EOS % 4.7 % (1.0-4.0); HEMOGLOBIN 15.1 g/dl (14.0-18.0); LYMPH # 2.2 10*3/uL (1.3-4.4); MEAN CELL VOLUME 91.1 fl (80.0-94.0); MEAN CORPUSCULAR HGB 28.7 pg (27.0-31.0); MEAN CORPUSCULAR HGB CONC 31.5 g/dl (33.0-37.0); MEAN PLATELET VOLUME 10.1 fl (9.6-12.3); MONO # 0.7 10*3/uL (0.1-1.0); MONO % 9.7 % (3.0-9.0); NEUT # 4.1 10*3/uL (2.3-7.9); NEUT % 54.7 % (47.0-73.0); PLATELET COUNT AUTOMATED 201 10*3/uL (130-400); RED BLOOD COUNT 5.27 10*6/uL (4.50-5.90); RED CELL DISTRI WIDTH 13.4 % (0-14.5); WHITE BLOOD COUNT 7.5 10*3/uL (4.8-10.8)
[2019-09-25 10:16] LABS: ALBUMIN 3.8 gm/dl (3.1-4.5); ALKALINE PHOSPHATASE 71 U/L (45-117); BUN 14 mg/dl (7-24); CHLORIDE 106 mmol/L (98-107); CHOLESTEROL 150 mg/dL (<200); CREATININE 1.23 mg/dL (0.70-1.30); HDL CHOLESTEROL 55 mg/dl (40-60); LDL CHOLESTEROL 66 mg/dL (9-159); POTASSIUM 4.5 mmol/L (3.5-5.1); SGOT/AST 19 IU/L (3-35); SGPT/ALT 21 U/L (12-78); SODIUM 140 mmol/L (136-145); TRIGLYCERIDES 143 mg/dl (<150); VLDL CHOLESTEROL 29 mg/dL (6-40)
== END | disposition home or self-care (01) ==
LOC: LAB 09:21
PROVIDERS: Family Medicine
DX: I25.10 Atherosclerotic heart disease of native coronary artery without angina pectoris (principal); G31.84 Mild cognitive impairment of uncertain or unknown etiology; E78.00 Pure hypercholesterolemia, unspecified

== ENCOUNTER 2019-11-10 12:22 | Emergency (ER) | payer OTHER, MEDICARE, BC ==
[~2019-11-10] VITALS: Ht 167.6 cm; Wt 63.5 kg
[2019-11-10 12:57] VITALS: BP 143/93
== END 2019-11-10 13:23 | disposition home or self-care (01) ==
LOC: ED 12:22
DX: S09.90XA Unspecified injury of head, initial encounter (principal); M10.9 Gout, unspecified; E78.5 Hyperlipidemia, unspecified; K21.9 Gastro-esophageal reflux disease without esophagitis; J44.9 Chronic obstructive pulmonary disease, unspecified; I12.9 Hypertensive chronic kidney disease with stage 1 through stage 4 chronic kidney disease, or unspecified chronic kidney disease; N18.3 Chronic kidney disease, stage 3 (moderate); E78.00 Pure hypercholesterolemia, unspecified; Z88.8 Allergy status to other drugs, medicaments and biological substances; Z79.899 Other long term (current) drug therapy; Z79.82 Long term (current) use of aspirin; Z87.891 Personal history of nicotine dependence; Z95.1 Presence of aortocoronary bypass graft; V89.2XXA Person injured in unspecified motor-vehicle accident, traffic, initial encounter; Y93.89 Activity, other specified; Y92.89 Other specified places as the place of occurrence of the external cause; Y99.8 Other external cause status

== ENCOUNTER → 2021-04-18 | Outpatient (CLI) | payer MEDICARE, BC | END | disposition home or self-care (01) | LOC: LAB 00:17 → COVID19 11:00 | PROVIDERS: ATTEND Internal Medicine Gastroenterology | DX: Z01.818 Encounter for other preprocedural examination (principal); Z20.822 Contact with and (suspected) exposure to COVID-19 ==

== ENCOUNTER 2021-05-12 15:49 | Emergency (ER) | payer MEDICARE, BC ==
[2021-05-12 16:06] VITALS: BP 143/97
[2021-05-12 17:32] LABS: BASO # 0.1 10*3/uL (0.0-0.1); BASO % 0.9 % (0.0-1.0); EOS # 0.3 10*3/uL (0.0-0.4); EOS % 3.5 % (1.0-4.0); HEMATOCRIT 40.7 % (42.0-52.0); LYMPH # 1.5 10*3/uL (1.3-4.4); MEAN CELL VOLUME 91.9 fl (80.0-94.0); MEAN CORPUSCULAR HGB 29.3 pg (27.0-31.0); MEAN CORPUSCULAR HGB CONC 31.9 g/dl (33.0-37.0); MONO # 0.7 10*3/uL (0.1-1.0); MONO % 7.8 % (3.0-9.0); NEUT # 6.5 10*3/uL (2.3-7.9); PLATELET COUNT AUTOMATED 156 10*3/uL (130-400); RED BLOOD COUNT 4.43 10*6/uL (4.50-5.90); RED CELL DISTRI WIDTH 13.9 % (0-14.5); WHITE BLOOD COUNT 9.1 10*3/uL (4.8-10.8)
[2021-05-12 17:57] LABS: ALKALINE PHOSPHATASE 59 U/L (45-117); BUN 16 mg/dl (7-24); CHLORIDE 108 mmol/L (98-107); CREATININE 1.02 mg/dL (0.70-1.30); POTASSIUM 3.5 mmol/L (3.5-5.1); SGOT/AST 13 IU/L (3-35); SGPT/ALT 15 U/L (12-78); SODIUM 141 mmol/L (136-145); TOTAL PROTEIN 6.6 gm/dL (6.4-8.2)
== END 2021-05-12 18:50 | disposition home or self-care (01) ==
LOC: ED 15:49
PROVIDERS: Emergency Medicine
DX: R13.10 Dysphagia, unspecified (principal); R55 Syncope and collapse; R06.02 Shortness of breath; K21.9 Gastro-esophageal reflux disease without esophagitis; E78.5 Hyperlipidemia, unspecified; M10.9 Gout, unspecified; J44.9 Chronic obstructive pulmonary disease, unspecified; I13.10 Hypertensive heart and chronic kidney disease without heart failure, with stage 1 through stage 4 chronic kidney disease, or unspecified chronic kidney disease; N18.30 Chronic kidney disease, stage 3 unspecified; Z88.1 Allergy status to other antibiotic agents; Z88.8 Allergy status to other drugs, medicaments and biological substances; Z79.899 Other long term (current) drug therapy; Z86.73 Personal history of transient ischemic attack (TIA), and cerebral infarction without residual deficits; Z87.891 Personal history of nicotine dependence

== ENCOUNTER 2021-08-23 15:15 | Inpatient (IN) | payer OTHER ==
[~2021-08-23] VITALS: Ht 167.6 cm; Wt 57.3 kg
[~2021-08-23 15:15] MED LIST changes: +ASPIRIN ADULT L81 M1 PO; +Imdur SA60 MG PO; +Lopressor25 MG PO
[2021-08-23 16:00] VITALS: BP 124/65
[2021-08-23 20:00] VITALS: BP 109/60
[2021-08-24] VITALS: BP 113/56
[2021-08-24 08:00] VITALS: BP 98/55
[2021-08-24 16:00] VITALS: BP 104/53
[2021-08-24 20:00] VITALS: BP 114/59
[2021-08-25] VITALS: BP 128/70
[2021-08-25 01:45] VITALS: BP 118/66
[2021-08-25 08:00] VITALS: BP 131/88
[2021-08-25 12:00] VITALS: BP 100/55
== END 2021-08-25 19:07 | DRG 871 ==
LOC: 5E 15:15
PROVIDERS: ADMIT Internal Medicine; ATTEND Internal Medicine
DX: A41.9 Sepsis, unspecified organism (principal); R65.21 Severe sepsis with septic shock; E43 Unspecified severe protein-calorie malnutrition; N39.0 Urinary tract infection, site not specified; K80.42 Calculus of bile duct with acute cholecystitis without obstruction; Z51.5 Encounter for palliative care; Z66 Do not resuscitate; I12.9 Hypertensive chronic kidney disease with stage 1 through stage 4 chronic kidney disease, or unspecified chronic kidney disease; N18.30 Chronic kidney disease, stage 3 unspecified; J44.9 Chronic obstructive pulmonary disease, unspecified; I25.10 Atherosclerotic heart disease of native coronary artery without angina pectoris; E78.5 Hyperlipidemia, unspecified; K21.9 Gastro-esophageal reflux disease without esophagitis; I25.2 Old myocardial infarction; Z86.73 Personal history of transient ischemic attack (TIA), and cerebral infarction without residual deficits; Z68.20 Body mass index [BMI] 20.0-20.9, adult